=== PATIENT | female | born 1945 | race Caucasian/White ===

== ENCOUNTER → 2017-08-17 | Outpatient (CLI) | payer OTHER | LOC: FIMAGING 12:59 | PROVIDERS: ATTEND Family Medicine | DX: N63.20 Unspecified lump in the left breast, unspecified quadrant (principal) ==

== ENCOUNTER 2018-06-26 07:08 | Inpatient (IN) | payer OTHER ==
[2018-06-26] MEDS ORDERED: LR 1,000 ML IV ONE (08:23)
[2018-06-26] MEDS ORDERED: ALBUTEROL 3 ML DEYVIAL ONE (08:23)
[2018-06-26] MEDS ORDERED: LIDOCAINE 1% 2 ML INJ ID PRN (08:23)
[2018-06-26] MEDS ORDERED: ALBUTEROL 3 ML DEYVIAL IH ONE (09:00)
[2018-06-26] MEDS ORDERED: ONDANSETRON 4 MG/2 ML VIAL IVP PRN ×2 (09:46→14:02)
[2018-06-26] MEDS ORDERED: HYDROCODONE/APAP 5/325 TAB PO PRN (09:46)
[2018-06-26] MEDS ORDERED: ZOLPIDEM TARTRATE 5 MG TAB PO PRN (09:46)
[2018-06-26] MEDS ORDERED: HYDROmorphONE/DILAUDID 1 MG/ML INJ IVP PRN (09:46)
[2018-06-26] MEDS ORDERED: ceFAZolin 2 GM/DEXTROSE 100 ML IV ONE (09:46)
--- NOTE | 2018-06-26 09:46 | PDHPUP ---
History & Physical Update H&P update statement: This history and physical update is based on an assessment of the patient which was completed after admission or registration (within 24 hours), but prior to the surgery/procedure. H&P update: H&P reviewed & patient examined, changes noted H&P changes: Left breast central ulcerating mass, significantly increased in size since last visit. Not a lumpectomy candidate anymore. Needs left mastectomy with axillary lymph node biopsy. Not a reconstructive candidate at present time. Will admit post op and involve case management.
--- NOTE | 2018-06-26 09:53 | POSTOPPROG ---
<Danny Becerra - Last Filed: 06/26/18 13:57> Post Op Note Date of Operation: 06/26/18 Surgeon: Danny Becerra Procedure: Left modified radical mastectomy EBL: 50-100 Drains: Gasper Aiken (x2) Specimen(s): additional final deep margin, complete axillary contents <Shobha Chávez - Last Filed: 06/26/18 14:29> Post Op Note Date of Operation: 06/26/18 Surgeon: Danny Becerra Felt Washing Machine Tender: Shobha Chávez PA-C Anesthesia: GET(General Endotracheal) Pre-op Diagnosis: Left breast mass Procedure: Left modified mastectomy and axillary dissection Inf/Abcess present in the surg proc area at time of surgery?: No EBL: 50-100 Complications: no immediate Drains: Gasper Aiken Specimen(s): left breast, additional posterior margin, left axillary contents
[2018-06-26] MEDS ORDERED: PROPOFOL 200 MG/20 ML VIAL ONE ×2 (11:30)
[2018-06-26] MEDS ORDERED: ROCURONIUM 100 MG/10 ML VIAL ONE (11:31)
[2018-06-26] MEDS ORDERED: ePHEDrine SULFATE 25 MG/5 ML SYR ONE (11:31)
[2018-06-26] MEDS ORDERED: fentaNYL 250 MCG/5 ML INJ ONE (11:31)
[2018-06-26] MEDS ORDERED: DEXAMETHASONE 4 MG/ML VIAL ONE (11:31)
[2018-06-26] MEDS ORDERED: ONDANSETRON 4 MG/2 ML VIAL ONE (11:31)
[2018-06-26] MEDS ORDERED: LIDOCAINE 2% 5 ML SDV ONE (11:31)
[2018-06-26] MEDS ORDERED: MIDAZOLAM 2 MG/2 ML VIAL IVP ONE (11:41)
[2018-06-26] MEDS ORDERED: MIDAZOLAM 2 MG/2 ML VIAL ONE (11:42)
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
[2018-06-26] MEDS ORDERED: PHENYLEPHRINE HCL 100 MCG/ML SYR ONE (12:55)
[2018-06-26] MEDS ORDERED: BUPIVACAINE/EPI 0.5% 30 ML SDV ONE (13:55)
[2018-06-26] MEDS ORDERED: LIDOCAINE 1% 300 MG/30 ML SDV ONE (13:55)
[2018-06-26] MEDS: KETOROLAC 15 MG/1 ML SDV IVP SCH ×3 (14:00→20:26)
[2018-06-26] MEDS ORDERED: NALOXONE HCL 0.4 MG/ML INJ IVP PRN (14:02)
[2018-06-26] MEDS ORDERED: oxyCODONE IR 5 MG TAB PO PRN (14:02)
[2018-06-26] MEDS ORDERED: fentaNYL 100 MCG/2 ML INJ IVP PRN (14:02)
[2018-06-26] MEDS ORDERED: LABETALOL HCL 5 MG/ML 20 ML MDV IVP PRN (14:02)
[2018-06-26] MEDS ORDERED: ALBUTEROL 3 ML DEYVIAL IH PRN (14:02)
[2018-06-26] MEDS ORDERED: PHENYLEPHRINE HCL 100 MCG/ML SYR IVP PRN (14:02)
[2018-06-26] MEDS ORDERED: SUGAMMADEX SODIUM 200 MG/2 ML VIAL IVP ONE (14:05)
[2018-06-27] MEDS: KETOROLAC 15 MG/1 ML SDV IVP SCH ×4 (01:53→20:41)
--- NOTE | 2018-06-27 04:29 | GOP ---
DATE OF OPERATION: SURGEON: Danny Becerra MD SALON COORDINATOR: Shobha Chávez PA-C. ANESTHESIA: General. ANESTHESIOLOGIST: George Vu MD. PREOPERATIVE DIAGNOSIS: Locally advanced left breast carcinoma. POSTOPERATIVE DIAGNOSIS: Locally advanced left breast carcinoma. PROCEDURE PERFORMED: Left modified radical mastectomy. FINDINGS: See below. INDICATIONS: 72-year-old female with a history of a large neglected central breast carcinoma. She was initially seen and given the options of lumpectomy versus mastectomy. Multiple months have passed since her initial visit. Her tumor has enlarged in size. On reassessment today, a central lumpectomy is no longer felt attainable. Patient has consented to a left mastectomy without reconstruction at this time. Risks and benefits were explained, including bleeding, infection, tumor recurrence, need for additional surgical intervention , arm edema, nerve injury as well as the role for completion axillary dissection. All questions were answered between she and her . They both consented to proceed. A surgical technology instructor is standard and necessary and customary for the safe performance of this procedure. DESCRIPTION OF PROCEDURE: General anesthesia was induced upon returning for lymphoscintigraphy. A large elliptical incision was created along the voluminous breast. Skin flaps were created to the level of the clavicle, sternum, inframammary fold, and latissimus dorsi muscle laterally. The breast was taken from the sternum and peeled laterally incorporating the pectoralis major fascia up into the axillary tail of Jerry. Specimen was then tagged for orientation and sent for permanent processing. The tumor extended toward the chest wall but was easily separable from the fascia. Additional portions of the pectoralis major musculature were excised and sent as a final deep margin. The axilla was opened. No radioactivity was able to be identified at any point either within the tail of the breast, lateral aspect of the breast, or within the axilla. Given the patient's high risk of breast tumor as well as challenging social status, it was opted to proceed with a complete axillary lymph node dissection. The axillary vein was skeletonized inferiorly. Using the Harmonic Scalpel, the fatty contents were dissected away from the vein as well as chest wall and latissimus musculature all toward the subscapularis muscle. The intercostal brachial nerve, long thoracic nerve, and thoracodorsal nerves were all identified and preserved in their entirety. The axillary contents were peeled away from their dense investing fibrofatty envelopes and sent as a separate specimen. Satisfactory hemostasis was assured. The breast was closed in layers over two flat Gasper-Aiken drains after application of pectoralis nerve blocks. The wounds were closed in layers with Vicryl suture followed by Monocryl suture. Dermabond was applied, and the patient was taken to Recovery uneventfully. /[id number]/MODL MTDD
[2018-06-27] MEDS: LEVOTHYROXINE 175 MCG TAB PO SCH (06:32)
[2018-06-27] MEDS ORDERED: diphenhydrAMINE 50 MG CAP PO PRN (08:03)
[2018-06-27] MEDS: buPROPion SR 150 MG TAB PO SCH ×2 (08:48→20:41)
[2018-06-27] MEDS: PARoxetine HCL 20 MG TAB PO SCH ×2 (08:48→20:41)
--- NOTE | 2018-06-27 09:08 | SOAPPROG ---
SOAP Progress Note Assessment/Plan: Assessment/Plan: Left modified radical mastectomy with axillary lymph node dissection POD #1. Overall doing well. PT/OT to evaluate and discuss home safety. She would benefit from additional education regarding drain care today (drain stripping, shower, etc). Will need home oxygen. Anticipate discharge to home tomorrow. Patient seen and evaluated with Dr. Becerra. 06/27/18 09:13 Subjective: Doing well. Vomited once last night, but nausea has subsided. Tolerating liquids and regular diet. No pain. No chest pain or shortness of breath. Has not yet ambulated. Objective: Vital Signs Temp Pulse Resp BP Pulse Ox 36.6 C 89 18 106/75 94 06/27/18 05:13 06/27/18 05:13 06/27/18 05:13 06/27/18 05:13 06/27/18 05:13 Laboratory Results 06/26/18 08:50 06/26/18 06/27/18 06/28/18 05:59 05:59 05:59 Intake Total 2460 Output Total 600 60 Balance 1860 -60 Physical Exam: Gen: A&O x3, appears comfortable in bed, afebrile HEENT: normal Skin: normal CV: regular rate Breast: left breast incision clean without erythema, flaps pink, nontender. Left ANURADHA drains (2) in place with sanguineous drainage Extremities: unremarkable ICD10 Worksheet Patient Problems: Problems Problem Status Onset Breast cancer, left Acute S/P left mastectomy Acute - ICD10 Problem Qualifiers (1) S/P left mastectomy (2) Breast cancer, left
--- NOTE | 2018-06-27 12:17 | ASMTCMCOM ---
CM Note CM Note Notes: Chart reviewed for discharge planning purposes. 72 year old patient s/p mastectomy. Per pt and her they are having difficulties with home oxygen form [facility]. Spoke with beaderstudent success advisor Sadia Gorman who will submit for a Red Lipstick Matt of the patient's behalf. Possibly needs HHC. Still under effects of sedating meds for pain. Her PCP is Danyelle Burdick who prescribed home oxygen. Call placed to [facility]. Unclear as to their process but someone is looking into issue. CM to follow for needs, Plan: Home with Home oxygen and maybe HHC when medically cleared for discharge. Date Signed: 06/27/2018 12:17 PM Electronically Signed By:Ashley Low RN
--- NOTE | 2018-06-27 13:56 | PDMN ---
Medical Necessity Medical necessity: [facility] S860 Mastectomy, Complete: 72 yo s/p L radical mastectomy w/ axillary lymph node dissection POD#1, pt did vomit overnight, per PA pt will need home Oxygen, additional education regarding drain care and PT/ OT to eval and review home safety. Pt requires additional MN for monitoring and interventions as above. Change to IP status 06/27/18@1346 per PA order.
[2018-06-27] MEDS ORDERED: metFORMIN SR 500 MG TAB PO SCH (18:00)
[2018-06-27] MEDS ORDERED: ATORVASTATIN CALCIUM 20 MG TAB PO SCH (21:00)
[2018-06-28] MEDS: KETOROLAC 15 MG/1 ML SDV IVP SCH ×2 (05:14→10:35)
[2018-06-28] MEDS: LEVOTHYROXINE 175 MCG TAB PO SCH (06:16)
--- NOTE | 2018-06-28 08:16 | PDHOMEO2F ---
Home Oxygen Face to Face Home Orders: I certify that a physician or a nurse practitioner or physician's assistant professor of nursing has had a [id number] encounter with this patient on the date of this order due to the diagnosis listed, which relates to the primary reason the patient requires home oxygen. Alternative treatments have been tried, or considered, and deemed ineffective. It is anticipated that supplemental oxygen will result in improvement with treatment. Home oxygen qualifying diagnosis: COPD SpO2 on room air (%): 88 Frequency of home oxygen needed: continuous Home oxygen liters per minute: 2 Home oxygen delivery device: nasal cannula Concentrator: Yes E-tanks for mobility and back up: Yes If ordering portable O2, is the patient mobile in the home?: Yes I certify that, based on these findings, the home oxygen is medically necessary for this patient for the following length of time. Length of time home oxygen needed: 99 years
--- NOTE | 2018-06-28 08:19 | PDIAF ---
- Diagnosis Diagnosis: Breast cancer Code Status: Full Code - Medication Management Discharge Medications: electronically signed and located in the Home Medication List. - Orders Services needed: Registered Nurse Oxygen: See home oxygen form Diet Recommendation: no restrictions on diet Diet Texture: Regular Texture Diet Wound Care Instructions: Strip ANURADHA drains TID and prn. May shower. Activity/Weight Bearing Restrictions: none - Follow Up Care Current Providers and Referrals: Danyelle Lebron [Primary Care Provider] - Danny Becerra MD [Medical Doctor] - follow up in 1 week
[2018-06-28] MEDS ORDERED: IBUPROFEN 600 MG TAB PO PRN (08:33)
[2018-06-28] MEDS: PARoxetine HCL 20 MG TAB PO SCH (08:59)
[2018-06-28] MEDS: buPROPion SR 150 MG TAB PO SCH (08:59)
--- NOTE | 2018-06-28 09:17 | PDIAF ---
- Diagnosis Diagnosis: Breast cancer Code Status: Full Code - Medication Management Discharge Medications: electronically signed and located in the Home Medication List. - Orders Services needed: Registered Nurse, Physical Therapy, Occupational Therapy Oxygen: See home oxygen form Diet Recommendation: no restrictions on diet Diet Texture: Regular Texture Diet Wound Care Instructions: Strip ANURADHA drains TID and prn. May shower. Activity/Weight Bearing Restrictions: none Additional Instructions: May shower. Strip ANURADHA drains 3x a day and as needed. No activity restrictions. - Follow Up Care Current Providers and Referrals: Danyelle Lebron [Primary Care Provider] - Danny Becerra MD [Medical Doctor] - follow up in 1 week
--- NOTE | 2018-06-28 09:42 | ASMTLACE ---
RITA Length of stay for Answers: 2 days current admission Acuity / Level of Answers: Yes Care: Did the patient have an inpatient admission? Comorbidities - select Answers: Any tumor (including all that apply lymphoma or leukemia) Diabetes (uncontrolled or controlled) Opioid dependence / Chronic pain Other Notes: Hypothyroid # of Emergency department Answers: 0 visits in the last 6 months Social determinants Answers: Mental health diagnosis (anxiety, depression, pers onality disorders, etc.) Score: 16 Date Signed: 06/28/2018 09:42 AM Electronically Signed By:Natasha Chambers
[2018-06-28] MEDS ORDERED: ONDANSETRON DISINTEGRATING 4 MG TAB PO PRN (12:12)
--- NOTE | 2018-06-28 16:49 | ASDISCHSUM ---
Discharge Information Plan Status:Home with Home Health Medically Cleared to Leave:06/27/2018 Discharge Date:06/27/2018 CM D/C Disposition:Home Health Service ADT D/C Disposition:Home, Routine, Self-Care Projected Discharge Date:06/28/2018 11:00 AM Transportation at D/C:Family Discharge Delay Reason: Follow-Up Date:06/28/2018 11:00 AM Discharge Slot: Final Diagnosis:Breast cancer Placement Information Referral Type:*Home Health Care Services Referral ID:[id number] Provider Name:[facility] [address] Address 2: City:[place] Selection Factors: State:[place] Patient Contact Information Contact Name:KHUSHI Relationship: Address:[address] [place] [address] [address] City:[place] Alternate Phone: State/Zip Code:[place] [address] Email: Financial Information Financial Class:Medicare Primary Plan Desc:MEDICARE INPATIENT Primary Plan Number:[id number] Secondary Plan Desc: Secondary Plan Number: Assessment Information LACE LACE Length of stay for Answers: 2 days current admission Acuity / Level of Answers: Yes Care: Did the patient have an inpatient admission? Comorbidities - select Answers: Any tumor (including all that apply lymphoma or leukemia) Diabetes (uncontrolled or controlled) Opioid dependence / Chronic pain Other Notes: Hypothyroid # of Emergency department Answers: 0 visits in the last 6 months Social determinants Answers: Mental health diagnosis (anxiety, depression, pers onality disorders, etc.) Score: 16 Date Signed: 06/28/2018 09:42 AM Electronically Signed By:Natasha Chambers [facility] Progress Note CM Note CM Note Notes: Chart reviewed for discharge planning purposes. 72 year old patient s/p mastectomy. Per pt and her they are having difficulties with home oxygen form [employer]. Spoke with car unloader helperinstructor of spanish Sadia Gorman who will submit for a Red Lipstick Matt of the patient's behalf. Possibly needs HHC. Still under effects of sedating meds for pain. Her PCP is Danyelle Burdick who prescribed home oxygen. Call placed to [facility]. Unclear as to their process but someone is looking into issue. CM to follow for needs, Plan: Home with Home oxygen and maybe HHC when medically cleared for discharge. Date Signed: 06/27/2018 12:17 PM Electronically Signed By:Ashley Low RN Case Management Discharge Plan Note Case Management Discharge Discharge Order Complete? Answers: Yes Patient to Obtain Answers: via Family Medications Transportation Arranged Answers: Family/Friends Faxed Final Orders Answers: Yes Agency/Facility Transfer Answers: Yes Report Printed & Faxed to Receiving Agency Family Notified Answers: Yes Notes: by pt Discharge Comments Notes: Pt to discharge today once home O2 delivery is completed. [facility] notified of discharge by phone and [employer]. No further CM needs noted at this time. Date Signed: 06/28/2018 04:49 PM Electronically Signed By:Natasha Chambers Intervention Information Intervention Type:*Occurence 73 Date of Service:06/28/2018 02:49 PM Patient Type:Inpatient Staff Member:JAE Gutierrez, Dona Hours: Discipline: Severity: Comment:
[2018-06-28 18:38] VITALS: BP 143/75
--- NOTE | 2018-06-29 07:20 | GDS ---
DISCHARGE SUMMARY: This is a 72-year-old female with a known left breast cancer. She underwent a left modified radical mastectomy with left axillary dissection on 06/26/2018. She had an uncomplicated postoperative course. Her pain was well managed with oral analgesics. She was educated on drain care and wound care. Her oxygen was maintained over 90% on 2 L of oxygen prior to discharge. She is to have home oxygen. Arrangements have been made for home nursing, home physical therapy, and home occupational therapy. She has no activity restrictions. A prescription was provided for [facility]. She is to resume all her home medications. She will follow up in the office in 1 week. HOME MEDICATIONS: Bupropion, simvastatin, paroxetine, metformin, diphenhydramine, levothyroxine. /[id number]/MODL MTDD
== END 2018-06-28 19:40 | disposition home health service (06) | DRG 583 ==
LOC: FSGY 07:08 → F3N 09:47 → F1N 10:50 → OBSVTOIN 06-27 13:46
PROVIDERS: ADMIT Surgery; ATTEND Surgery
PROC: 0HTU0ZZ Resection of Left Breast, Open Approach (ICD-10-PCS; principal; 2018-06-27)
PROC: 07T60ZZ Resection of Left Axillary Lymphatic, Open Approach (ICD-10-PCS; principal; 2018-06-27)
DX: C50.112 Malignant neoplasm of central portion of left female breast (principal); E66.9 Obesity, unspecified; E11.9 Type 2 diabetes mellitus without complications; E03.9 Hypothyroidism, unspecified; Z79.84 Long term (current) use of oral hypoglycemic drugs
CPT/HCPCS: 97161-GP; 97166-GO; A9520; J0690; J1100; J1885; J2250; J2370; J2405; J2704; J3010; J7613

== ENCOUNTER → 2018-06-26 | Outpatient (CLI) | payer OTHER | LOC: FIMAGING 07:28 ==